=== PATIENT | male | born 1980 | race African-American/Black ===

== ENCOUNTER 2022-01-07 16:09 | Inpatient (IN) | payer OTHER, SELFPAY ==
[2022-01-07 16:58] VITALS: BMI 28.3
[2022-01-07 18:00] VITALS: BP 127/71; PULSE 78; TEMP 37.1; O2SAT 95
[2022-01-07] MEDS: traZODone HCL 50 MG TABLET PO (21:13)
--- NOTE | 2022-01-08 00:09 | PC.ADMIT ---
Patient is 42 year old single New Zealander speaking male admitted as a Section 12B at 1641 to . Patient was accepted from [facility] ED where he was medically cleared, evaluated by N and deemed in need of IPLOC due to vague SI statements and paranoia. Patient had apparently been drinking and using cocaine prior to coming to the emergency room and had had chest pain. He ended up in the ED to have his chest pain evaluated and patient had, according to the intake, voiced SI and also voiced paranoia about some people in [place] that were going to hurt him. Patient is not known the [facility] or other local psychiatric facilities, but has had previous in patient admissions in [place]. He said he had previously been told he was Bipolar but has been off medications for 3 - 4 years. He has most recently been living in a homeless [facility] in [place] and was in [place] to grajeda a paycheck and go out partying . Patient's tox screen was positive for cocaine, but his alcohol level was unremarkable. Patient did not want to sign a CV because he did not feel he needed to be inpatient. Patient was too tired to sign any legals, treatment plan or safety tool. He was very happy to eat a large dinner and visit with other patients and go to bed. He did have an opportunity to speak with Dr. Gaston and explain his reason for not wanting to sign a CV. Patient's orders were done, patient sleeping at change of shift. CIWA score at 1999 was a 1 .
[2022-01-08 06:58] VITALS: BP 118/61; PULSE 67; RESP 16; TEMP 36.3; O2SAT 100
[2022-01-08 07:00] VITALS: BMI 31.5
[2022-01-08 08:30] LABS: MANUAL DIFF FLAG NO
[2022-01-08 08:39] LABS: Basophils Absolute Auto 0.1 X10*3/uL (0.0-0.2); Eosinophils Absolute Auto 0.5 X10*3/uL (0.0-0.4); Eosinophils Percent Auto 10.9 % (0-4); Hematocrit 41.5 % (42.0-52.0); Hemoglobin 14.2 g/dl (14.0-18.0); Imm Gran Abs Auto 0.05 X10*3/uL (0.00-0.03); Lymphocytes Absolute Auto 2.2 X10*3/uL (1.2-4.9); Lymphocytes Percent Auto 44.9 % (20-40); Mean Corpuscular HGB Conc 34.2 g/dl (31.0-36.0); Mean Corpuscular Hemoglobin 30.9 pg (27.0-33.0); Mean Corpuscular Volume 90.2 fL (80.0-98.0); Mean Platelet Volume 10.1 fL (9.4-12.4); Monocytes Absolute Auto 0.6 X10*3/uL (0.1-1.2); Monocytes Percent Auto 11.1 % (2-11); Neutrophils Absolute Auto 1.6 x10*3/uL (2.0-8.3); Neutrophils Percent Auto 31.1 % (45-73); Platelet Count 241 X10*3/uL (160-400); Red Cell Distribution Width 11.9 % (11.0-16.0)
--- NOTE | 2022-01-08 08:40 | HO.PM.IMCN ---
History of Present Illness Data of Consult Service Date: 01/08/22 Primary Care Provider: None Physician HPI Reason for consult: Routine Medical H&P This is a 41 yo M who is admitted to . Medical consult requested for routine medical H&P The patient denies any medical complaints at this time. PMH Denies PSH Finger surgery after work injury FH HTN SH Occasional tobacco use; weekly alcohol use; q2 weekly cocaine use Review of Systems Review of Systems: Negative except HPI/interval history. PMFSH Social History Household Members: Other Housing: Homeless Housing Other:: L[facility] Patient Tobacco Use Status: Never used Tobacco Smoked in Last 30 Days: No e-Cigarette/Vaping Use: Never Used Second Hand Smoke Exposure: Yes Use of substances other than those prescribed or required for medical reasons: Yes Substance Use Type: Crack/Cocaine Substance Use Frequency: Occasionally Last Used Substance: Days (ago) Currently Displaying Signs/Symptoms of Drug Intoxication Withdrawal: No Any prior treatment program specific to substance use: No Have you been hit, kicked, punched, or otherwise hurt by someone within the past year? If so, by whom?: No Do you feel safe in your current relationship?: No Is there a partner from a previous relationship who is making you feel unsafe now?: No Are you made to feel afraid or neglected: No Spiritual Healthcare Practices: NONE Worship Healthcare Practices: NONE Cultural Healthcare Practices: NONE Advance Directives: No Advance Directives Information Provided: No Do you have thoughts of harming others: None Do you have a plan to hurt others: No Plan Recently lost weight without trying: No Eating poorly because of decreased appetite: No Nutrition Risks: No Nutritional Risk Poor oral hygiene: No Meds Allergies Allergy/AdvReac Type Severity Reaction Status Date / Time No Known Allergies Allergy Verified 01/07/22 17:10 Active Medications: Current Medications Acetaminophen (Acetaminophen 325 Mg Tablet) 650 mg PO Q6H PRN PRN Reason: Headache/Pain Mild Scale (1-3) Al Hydroxide/Mg Hydroxide (Magnesium Hydrox/Alum Hydrox 30 Ml Oral.Susp) 30 ml PO Q6H PRN PRN Reason: Heartburn/Nausea Hydroxyzine HCl (Hydroxyzine Hcl 25 Mg Tablet) 25 mg PO BEDTIME PRN PRN Reason: Anxiety Lorazepam (Lorazepam 1 Mg Tablet) 1 mg PO Q4H PRN PRN Reason: withdrawal, anxiety Magnesium Hydroxide (Milk Of Magnesia 30 Ml Oral.Susp) 30 ml PO DAILY PRN PRN Reason: Constipation Multivitamins/Vitamin C (Multivitamin Tablet) 1 tab PO DAILY KAYA Thiamine HCl (Thiamine Hcl 100 Mg Tablet) 100 mg PO DAILY KAYA Trazodone HCl (Trazodone Hcl 50 Mg Tablet) 50 mg PO BEDTIME PRN PRN Reason: Insomnia Last Admin: 01/07/22 21:13 Dose: 50 mg Home Medications Medication Instructions Recorded Confirmed Last Taken Type No Known Home Meds 01/07/22 01/07/22 Unknown History Physical Exam Vital Signs and Narrative: Vital Signs: Last Vital Signs Temp 97.4 F 01/08/22 06:58 Pulse 67 01/08/22 06:58 Resp 16 01/08/22 06:58 BP 118/61 01/08/22 06:58 Pulse Ox 100 01/08/22 06:58 O2 Del Method 01/08/22 06:58 BMI result Body Mass Index 28.3 Const: Other: General - no acute distress, appears comfortable Cardiovascular - regular rate and rhythm, S1-S2 Lungs - normal respiratory effort, clear to auscultation bilaterally, no wheezing Abdomen - soft, nontender, no rebound or guarding Extremities - no edema bilaterally Neuro - awake and alert, no focal deficits; cn 2-12 intact b/l Results Labs CBC and Chem 7: 01/08/22 08:14 01/08/22 08:14 Labs: Laboratory Results - last 24 hr 01/08/22 08:14 MCV 90.2 MCH 30.9 MCHC 34.2 RDW 11.9 Plt Count 241 MPV 10.1 Immature Gran % (Auto) 1.0 H Neut % (Auto) 31.1 L Lymph % (Auto) 44.9 H [place] % (Auto) 11.1 H Eos % (Auto) 10.9 H Baso % (Auto) 1.0 Lymph # (Auto) 2.2 [place] # (Auto) 0.6 Eos # (Auto) 0.5 H Baso # (Auto) 0.1 Abs Immat Gran (auto) 0.05 H Absolute Neuts (auto) 1.6 L Absolute Nucleated RBC 0.000 Nucleated RBC % (auto) 0.0 Assessment and Plan (1) Routine medical exam: Status: Acute Plan This 41 yo M who endorses no significant PMH who admitted to . Medical consultation sought for routine medical H&P. Patient has no active nor chronic medical issues. Patient has been counseled on age appropriate health maintenance as an outpatient. Continue care per primary team. Will sign off. Please re-consult if any issues arise.
[2022-01-08 08:55] LABS: Estimated Average Glucose 91 mg/dL; Hemoglobin A1c % 4.8 %
[2022-01-08] MEDS: Thiamine HCL 100 MG TABLET PO (09:07)
[2022-01-08] MEDS: Multivitamin TABLET 1 TAB PO (09:07)
[2022-01-08 09:16] LABS: Alanine Aminotransferase 30 U/L (0-40); Alkaline Phosphatase 50 U/L (39-117); Anion Gap 9 (12-20); Aspartate Amino Transferase 28 U/L (5-37); Bilirubin Total 0.5 mg/dL (0.0-1.0); Blood Urea Nitrogen 15 mg/dL (9-16); Calcium 9.1 mg/dL (8.4-10.2); Carbon Dioxide 27 mmol/L (22-29); Chloride 103 mmol/L (96-108); Cholesterol 195 mg/dL; Creatinine Clr Calc Pharmacy 84.6; Estimated Glomerular Filt Rate > 60; Glucose Fasting 86 mg/dL (60-99); HDL Cholesterol 62 mg/dL; LDL Cholesterol Calculated 121 mg/dl; Magnesium 2.1 mg/dL (1.6-2.6); Potassium 4.4 mmol/L (3.3-5.1); Sodium 135 mmol/L (135-145); Total Protein 6.7 g/dL (6.5-8.0); Triglycerides 63 mg/dL
[2022-01-08 09:29] LABS: Thyroid Stimulating Hormone 1.25 uIU/mL (0.32-4.0)
[2022-01-08 10:00] LABS: Folate 9.5 ng/mL (> or = 4.0); Vitamin B12 289 pg/mL (200-900)
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
== END 2022-01-08 16:12 | disposition home or self-care (01) | DRG 755 ==
PROVIDERS: Clinical Nurse Specialist Psychiatric/Mental Health, Adult; Admitting Provider Psychiatry & Neurology Psychiatry; Visit Provider Psychiatry & Neurology Psychiatry
DX: F43.25 Adjustment disorder with mixed disturbance of emotions and conduct (principal); R45.851 Suicidal ideations; F10.10 Alcohol abuse, uncomplicated; I10 Essential (primary) hypertension; F14.10 Cocaine abuse, uncomplicated; Z59.01 Sheltered homelessness; Z62.810 Personal history of physical and sexual abuse in childhood
CPT/HCPCS: 36415; 80053; 80061; 82607; 82746; 83036; 83735; 84439; 84443; 85025